=== PATIENT | female | born 1980 | race Caucasian/White ===

== ENCOUNTER 2016-12-25 07:21 | Emergency (ER) | payer OTHER ==
[~2016-12-25] VITALS: Ht 160 cm; Wt 81.6 kg
[2016-12-25] MEDS ORDERED: LOSA25TA4 PO (07:33)
--- NOTE | 2016-12-25 08:02 | PHYS DOC ---
Past Medical History Past Medical History: Hypertension Past Surgical History: Other Additional Past Surgical Histo: L leg sx Alcohol Use: Occasionally Drug Use: None Adult General Chief Complaint Chief Complaint: ABDOMINAL PAIN HPI HPI Patient is a 36 year old female who complains of lower abdominal pain which began after she woke up this morning about 1 hour prior to arrival. It started very suddenly and was "really bad", seemed to be a little worse with movement. Nothing made it better. At first thought maybe she needed to have a bowel movement but now she does not think that's it. The pain has let up somewhat but is still there. She's never had pain like this before. It is worsened with movement or walking. She had some nausea but no vomiting. Denies UTI symptoms. Denies . She had a Depakote shot about 2 months ago and she has not had a menstrual period since then. She has had a little spotting off and on. That was the first time she's had a Depakote shot. She was not using any control prior to that. She has not had any abdominal surgery. Past medical history hypertension, takes losartan, she has not taken it yet today. She gets her primary care at [facility]. Review of Systems Review of Systems Constitutional: Denies fever or chills [] Eyes: Denies change in visual acuity, redness, or eye pain [] HENT: Denies nasal congestion or sore throat [] Respiratory: Denies cough or shortness of breath [] Cardiovascular: Denies chest pain GI: As in history of present illness : Denies dysuria or hematuria [] Musculoskeletal: Denies back pain or joint pain [] Integument: Denies rash or skin lesions [] Neurologic: Denies headache, focal weakness or sensory changes [] Current Medications Current Medications Current Medications Medications (Trade) Dose Ordered Sig/Ronni Start Time Stop Time Status Last Admin Dose Admin Ketorolac Tromethamine (Toradol) 30 mg 1X ONCE 12/25/16 10:00 12/25/16 10:01 DC 12/25/16 09:35 30 MG Sodium Chloride (Iv Sodium Chloride 0.9% 1000ml Bag) 1,000 ml @ 1,000 mls/hr Q1H 12/25/16 08:15 12/25/16 09:14 DC 12/25/16 08:22 1,000 MLS/HR Allergies Allergies Allergies Coded Allergies Type Severity Reaction Last Updated Verified morphine Allergy Intermediate Nausea and Vomiting 12/25/16 Yes Physical Exam Physical Exam Constitutional: Well developed, well nourished, no acute distress, non-toxic appearance. No acute distress at this time. Alert, mentating normally. HENT: Normocephalic, atraumatic, bilateral external ears normal, nose normal. [ ] Eyes: conjunctiva normal, no discharge. [] Neck: Normal range of motion, no stridor. [] Cardiovascular:Heart rate regular rhythm, no murmur [] Lungs & Thorax: Bilateral breath sounds clear to auscultation [] Abdomen: Bowel sounds normal but quiet, soft, nondistended, no masses, no pulsatile masses. Mild to moderate tenderness in the low right lower quadrant and midline, slightly higher than suprapubic. Little to no left lower quadrant tenderness. No rebound or guarding. Pelvic exam: External genitalia normal. Vaginal vault normal. Cervix normal. Bimanual: No cervical motion tenderness. Uterus not enlarged or tender. Relatively significant tenderness to the right adnexa mostly from internal exam perspective, no enlargement, no masses, no fullness palpable in the right adnexa. Left adnexa nontender with no masses. Skin: Warm, dry, no erythema, no rash. [] Extremities: No tenderness, no cyanosis, no clubbing, ROM intact, no edema. [] Neurologic: Alert and oriented X 3, normal motor function, normal sensory function, no focal deficits noted. [] Current Patient Data Vital Signs Vital Signs Date Time Temp Pulse Resp B/P Pulse Ox O2 Delivery O2 Flow Rate FiO2 12/25/16 10:51 104 124/74 96 Room Air 12/25/16 07:27 98.2 18 98.2 Lab Values Laboratory Tests Test 12/25/16 06:59 12/25/16 07:30 12/25/16 08:17 POC Urine HCG, Qualitative Hcg negative (Negative) Urine Collection Type Void Urine Color Yellow Urine Clarity Clear Urine pH 6.0 Urine Specific Bradley >=1.030 Urine Protein Negativemg/dL (NEG-TRACE) Urine Glucose (UA) Negativemg/dL (NEG) Urine Ketones (Stick) Negativemg/dL (NEG) Urine Blood Small (NEG) Urine Nitrite Negative (NEG) Urine Bilirubin Negative (NEG) Urine Urobilinogen Dipstick 0.2mg/dL (0.2 mg/dL) Urine Leukocyte Esterase Moderate (NEG) Urine RBC 6-10/HPF (0-2) Urine WBC 5-10/HPF (0-4) Urine Squamous Epithelial Cells Many/LPF Urine Bacteria Many/HPF (0-FEW) Urine Mucus Marked/LPF White Blood Count 9.4x10^3/uL (4.0-11.0) Red Blood Count 4.04x10^6/uL (3.50-5.40) Hemoglobin 12.5g/dL (12.0-15.5) Hematocrit 37.6% (36.0-47.0) Mean Corpuscular Volume 93fL (79-100) Mean Corpuscular Hemoglobin 31pg (25-35) Mean Corpuscular Hemoglobin Concent 33g/dL (31-37) Red Cell Distribution Width 13.6% (11.5-14.5) Platelet Count 313x10^3/uL (140-400) Neutrophils (%) (Auto) 68% (31-73) Lymphocytes (%) (Auto) 24% (24-48) Monocytes (%) (Auto) 6% (0-9) Eosinophils (%) (Auto) 2% (0-3) Basophils (%) (Auto) 1% (0-3) Neutrophils # (Auto) 6.4x10^3uL (1.8-7.7) Lymphocytes # (Auto) 2.2x10^3/uL (1.0-4.8) Monocytes # (Auto) 0.5x10^3/uL (0.0-1.1) Eosinophils # (Auto) 0.1x10^3/uL (0.0-0.7) Basophils # (Auto) 0.1x10^3/uL (0.0-0.2) Sodium Level 140mmol/L (136-145) Potassium Level 3.4mmol/L (3.5-5.1) L Chloride Level 104mmol/L (98-107) Carbon Dioxide Level 27mmol/L (21-32) Anion Gap 9 (6-14) Blood Urea Nitrogen 15mg/dL (7-20) Creatinine 0.8mg/dL (0.6-1.0) Estimated GFR (Cockcroft-Gault) 80.3 BUN/Creatinine Ratio 19 (6-20) Glucose Level 114mg/dL (70-99) H Calcium Level 9.1mg/dL (8.5-10.1) Total Bilirubin 0.8mg/dL (0.2-1.0) Aspartate Amino Transferase (AST) 18U/L (15-37) Alanine Aminotransferase (ALT) 28U/L (14-59) Alkaline Phosphatase 48U/L (46-116) Total Protein 7.3g/dL (6.4-8.2) Albumin 3.6g/dL (3.4-5.0) Albumin/Globulin Ratio 1.0 (1.0-1.7) Lipase 144U/L (73-393) Laboratory Tests 12/25/16 08:17 Laboratory Tests 12/25/16 08:17 EKG EKG [] Radiology/Procedures Radiology/Procedures Pelvic ultrasound interpreted by the radiologist. No acute pathology noted. Good blood flow to both ovaries. [] Course & Med Decision Making Course & Med Decision Making Pertinent Labs and Imaging studies reviewed. (See chart for details) 36-year-old female with an acute onset of low right lower quadrant pain which seems to be localized to the right adnexa and possibly even right ovary on exam. test is negative. The patient does not have cervicitis, cervical motion tenderness, and I don't believe she has PID. Her pain was relatively severe and acute on onset but has let up since she presented to the ED. Ultrasound unremarkable for acute pathology. The patient may have had a ruptured cyst. I'm not finding any serious cause of her pain and it has let up quite a bit on its own. I feel that she is appropriate for discharge and can observe her at home. She is comfortable with that plan. [] Dragon Disclaimer Dragon Disclaimer This electronic medical record was generated, in whole or in part, using a voice recognition dictation system. Departure Departure Impression: Primary Impression: Right lower quadrant pain Disposition: HOME, SELF-CARE Condition: STABLE Referrals: UNKNOWN PCP NAME (PCP) Patient Instructions: Ovarian Cyst, [id number] Additional Instructions: Ibuprofen 800 mg every 8 hours for pain. Do not combine with Aleve, they are basically the same medication. Heating pad to pelvis area. If pain gets a lot worse, return for recheck. If not getting better by Tuesday or Tuesday, recheck with your doctor. Scripts Ibuprofen 800 Mg [id number] Mg PO Q8HRS PRN INFLAMMATION #20 TAB One every 8 hours for right-sided pelvis pain Prov:ANUSHA MORGAN MD 12/25/16 ANUSHA MORGAN MD Dec 25, 2016 08:02
[2016-12-25 08:03] LABS: BILIRUBIN,URINE NEGATIVE (NEG); GLUCOSE,URINE NEGATIVE (NEG); NITRITE,URINE NEGATIVE (NEG); PROTEIN,URINE NEGATIVE (NEG-TRACE); UROBILINOGEN,URINE 0.2 mg/dL (0.2 mg/dL)
[2016-12-25 08:15] LABS: BACTERIA,URINE MANY /HPF (0-FEW); SQUAMOUS EPITHELIAL CELL,UR MANY /LPF
[2016-12-25] MEDS ORDERED: IV NORMAL SALINE 1000ML BAG 1,000 ML IV SCH (08:15)
[2016-12-25 08:29] LABS: BASO # 0.1 x10^3/uL (0.0-0.2); BASO % 1 % (0-3); EOS % 2 % (0-3); HEMATOCRIT 37.6 % (36.0-47.0); HEMOGLOBIN 12.5 g/dL (12.0-15.5); LYMPH # 2.2 x10^3/uL (1.0-4.8); LYMPH % 24 % (24-48); MEAN CORPUSCULAR HEMOGLOBIN 31 pg (25-35); MEAN CORPUSCULAR HGB CONC 33 g/dL (31-37); MEAN CORPUSCULAR VOLUME 93 fL (79-100); MONO % 6 % (0-9); NEUT % 68 % (31-73); PLATELET COUNT 313 x10^3/uL (140-400); RED BLOOD COUNT 4.04 x10^6/uL (3.50-5.40); RED CELL DISTRIBUTION WIDTH 13.6 % (11.5-14.5); WHITE BLOOD COUNT 9.4 x10^3/uL (4.0-11.0)
[2016-12-25 08:39] LABS: CALCIUM 9.1 mg/dL (8.5-10.1); CREATININE 0.8 mg/dL (0.6-1.0); GFR 80.3; POTASSIUM 3.4 mmol/L (3.5-5.1)
[2016-12-25 08:45] LABS: ALBUMIN 3.6 g/dL (3.4-5.0); TOTAL BILIRUBIN 0.8 mg/dL (0.2-1.0); TOTAL PROTEIN 7.3 g/dL (6.4-8.2)
[2016-12-25] MEDS ORDERED: KETOROLAC TROMETHAMINE 30 MG/ML SYRINGE. IV ONE (10:00)
--- NOTE | 2016-12-25 10:13 | RAD ---
EXAM: Pelvic sonogram. HISTORY: Right adnexal pain. TECHNIQUE: Transvaginal sonographic imaging of the pelvis was performed. COMPARISON: None. FINDINGS: The uterus measures 6.8 x 4.4 x 3.5 cm. The individual stripe measures 3.1 mm. The right ovary measures 1.8 x 3.1 x 2.5 cm. The left ovary measures 2.5 x 2.0 x 1.8 cm. There is normal blood flow within both ovaries. There are several small ovarian follicles. There is a small amount of pelvic free fluid. IMPRESSION: 1. Small amount of nonspecific pelvic free fluid. 2. Otherwise, unremarkable pelvic sonogram.
[2016-12-25 10:51] VITALS: BP 124/74
[2016-12-25] MEDS ORDERED: IBUP-1060 PO (10:58)
[2016-12-26] MEDS ORDERED: CIPR500T94 PO (09:20)
[2016-12-26] MEDS ORDERED: ONDA4TAB7 PO (09:20)
[2016-12-26] MEDS ORDERED: TRAM-29 PO (09:20)
== END 2016-12-25 11:18 | disposition home or self-care (01) ==
LOC: ER 07:21
DX: R10.31 Right lower quadrant pain (principal); R11.0 Nausea; I10 Essential (primary) hypertension; Z88.5 Allergy status to narcotic agent; Z79.899 Other long term (current) drug therapy
CPT/HCPCS: 36415; 76830; 76856; 80053; 81001; 81025; 83690; 85027; 87086; 96361; 96374; 99285; J1885; J7030

== ENCOUNTER 2016-12-26 07:45 | Emergency (ER) | payer OTHER ==
[~2016-12-26] VITALS: Ht 160 cm; Wt 81.6 kg
[~2016-12-26 07:45] MED LIST: IBUP-1060 PO; LOSA25TA4 PO
--- NOTE | 2016-12-26 08:07 | PHYS DOC ---
Past Medical History Past Medical History: Hypertension Past Surgical History: Other Additional Past Surgical Histo: L leg sx Alcohol Use: Occasionally Drug Use: None Adult General Chief Complaint Chief Complaint: ABDOMINAL PAIN HPI HPI Patient is a 36 year old female with history of hypertension who presents today with moderate right lower quadrant abdominal pain that has been going on since yesterday. Patient states the pain is worse when she takes a deep breath. Patient states she was seen in the ED yesterday with the same pain. She states they did an ultrasound, pelvic exam, labs and told her she could have a ruptured ovarian cyst. Patient states the pain has gotten worse. Patient denies any fever, nausea, vomiting. She states the pain medicines they gave her which was ibuprofen is not touching her pain either. Review of Systems Review of Systems Constitutional: See history of present illness Eyes: Denies change in visual acuity, redness, or eye pain [] HENT: Denies nasal congestion or sore throat [] Respiratory: Denies cough or shortness of breath [] Cardiovascular: No additional information not addressed in HPI [] GI: Right lower quadrant abdominal pain : Denies dysuria or hematuria [] Musculoskeletal: Denies back pain or joint pain [] Integument: Denies rash or skin lesions [] Neurologic: Denies headache, focal weakness or sensory changes [] Endocrine: Denies polyuria or polydipsia [] Current Medications Current Medications Current Medications Medications (Trade) Dose Ordered Sig/Ronni Start Time Stop Time Status Last Admin Dose Admin Fentanyl Citrate (Fentanyl 2ml Vial) 50 mcg 1X ONCE 12/26/16 08:45 12/26/16 08:46 DC 12/26/16 08:19 50 MCG Iohexol (Omnipaque 300 Mg/ml) 75 ml 1X ONCE 12/26/16 08:30 12/26/16 08:31 DC 12/26/16 08:26 75 ML Ondansetron HCl (Zofran) 4 mg 1X ONCE 12/26/16 08:45 12/26/16 08:46 DC 12/26/16 08:18 4 MG Sodium Chloride (Iv Sodium Chloride 0.9% 1000ml Bag) 1,000 ml @ 1,000 mls/hr 1X ONCE 12/26/16 08:15 12/26/16 09:14 DC 12/26/16 08:18 1,000 MLS/HR Allergies Allergies Allergies Coded Allergies Type Severity Reaction Last Updated Verified morphine Allergy Intermediate Nausea and Vomiting 12/25/16 Yes Physical Exam Physical Exam Constitutional: Well developed, well nourished, no acute distress, non-toxic appearance. [] HENT: Normocephalic, atraumatic, bilateral external ears normal, oropharynx moist, no oral exudates, nose normal. [] Eyes: PERRLA, EOMI, conjunctiva normal, no discharge. [] Neck: Normal range of motion, no tenderness, supple, no stridor. [] Cardiovascular:Heart rate regular rhythm, no murmur [] Lungs & Thorax: Bilateral breath sounds clear to auscultation [] Abdomen: Rounded abdomen. Bowel sounds normal, soft, no right upper quadrant tenderness, negative Ontiveros sign, negative psoas sign, negative Rovsing, negative obuturator sign, no guarding. No guarding, no rebound pain or tenderness, no masses, no pulsatile masses. [] Skin: Warm, dry, no erythema, no rash. [] Back: No tenderness, no CVA tenderness. [] Extremities: No tenderness, no cyanosis, no clubbing, ROM intact, no edema. [] Neurologic: Alert and oriented X 3, normal motor function, normal sensory function, no focal deficits noted. [] Psychologic: Affect normal, judgement normal, mood normal. [] Current Patient Data Vital Signs Vital Signs Date Time Temp Pulse Resp B/P Pulse Ox O2 Delivery O2 Flow Rate FiO2 12/26/16 08:32 18 163/88 100 Room Air 12/26/16 07:45 98.4 115 98.4 Lab Values Laboratory Tests Test 12/26/16 08:13 White Blood Count 10.3x10^3/uL (4.0-11.0) Red Blood Count 3.82x10^6/uL (3.50-5.40) Hemoglobin 11.8g/dL (12.0-15.5) L Hematocrit 35.0% (36.0-47.0) L Mean Corpuscular Volume 92fL (79-100) Mean Corpuscular Hemoglobin 31pg (25-35) Mean Corpuscular Hemoglobin Concent 34g/dL (31-37) Red Cell Distribution Width 13.1% (11.5-14.5) Platelet Count 317x10^3/uL (140-400) Neutrophils (%) (Auto) 60% (31-73) Lymphocytes (%) (Auto) 29% (24-48) Monocytes (%) (Auto) 10% (0-9) H Eosinophils (%) (Auto) 2% (0-3) Basophils (%) (Auto) 1% (0-3) Neutrophils # (Auto) 6.2x10^3uL (1.8-7.7) Lymphocytes # (Auto) 2.9x10^3/uL (1.0-4.8) Monocytes # (Auto) 1.0x10^3/uL (0.0-1.1) Eosinophils # (Auto) 0.2x10^3/uL (0.0-0.7) Basophils # (Auto) 0.1x10^3/uL (0.0-0.2) Urine Collection Type Unknown Urine Color Subha Urine Clarity Cloudy Urine pH 7.0 Urine Specific Axis 1.020 Urine Protein 30mg/dL (NEG-TRACE) Urine Glucose (UA) Negativemg/dL (NEG) Urine Ketones (Stick) Negativemg/dL (NEG) Urine Blood Small (NEG) Urine Nitrite Positive (NEG) Urine Bilirubin Negative (NEG) Urine Urobilinogen Dipstick 1.0mg/dL (0.2 mg/dL) Urine Leukocyte Esterase Moderate (NEG) Urine RBC 6-10/HPF (0-2) Urine WBC 20-40/HPF (0-4) Urine Squamous Epithelial Cells Many/LPF Urine Bacteria Many/HPF (0-FEW) Urine Mucus Mod/LPF Sodium Level 138mmol/L (136-145) Potassium Level 3.6mmol/L (3.5-5.1) Chloride Level 104mmol/L (98-107) Carbon Dioxide Level 24mmol/L (21-32) Anion Gap 10 (6-14) Blood Urea Nitrogen 8mg/dL (7-20) Creatinine 0.7mg/dL (0.6-1.0) Estimated GFR (Cockcroft-Gault) 93.6 BUN/Creatinine Ratio 11 (6-20) Glucose Level 108mg/dL (70-99) H Calcium Level 9.0mg/dL (8.5-10.1) Total Bilirubin 2.1mg/dL (0.2-1.0) #H Aspartate Amino Transferase (AST) 58U/L (15-37) H Alanine Aminotransferase (ALT) 61U/L (14-59) H Alkaline Phosphatase 73U/L (46-116) Total Protein 7.4g/dL (6.4-8.2) Albumin 3.4g/dL (3.4-5.0) Albumin/Globulin Ratio 0.9 (1.0-1.7) L Lipase 107U/L (73-393) Laboratory Tests 12/26/16 08:13 Laboratory Tests 12/26/16 08:13 EKG EKG [] Radiology/Procedures Radiology/Procedures []PROCEDURE: ABD PELV W/ IV CONTRAST ONLY EXAM: Abdomen and pelvis CT with intravenous contrast. HISTORY: Right lower quadrant pain. TECHNIQUE: Computed tomographic images of the abdomen and pelvis were obtained following the administration of 75 cc Omnipaque 300 intravenous contrast. Multiplanar reformatting was performed. COMPARISON: None. FINDINGS: Evaluation of the lower thorax demonstrates posterior dependent and basilar atelectasis. There is no infiltrate or effusion. No hepatic lesion is seen. The gallbladder, pancreas, spleen, adrenal glands and kidneys are unremarkable. The appendix is normal in appearance. There is no evidence of bowel obstruction. There are a few prominent pericecal lymph nodes, likely reactive or physiologic. The uterus is unremarkable. There are multiple prominent ovarian follicles and there is a small amount of pelvic free fluid, within physiologic limits. No suspicious osseous lesion is seen. IMPRESSION: No acute abdominal or pelvic finding. Specifically, the appendix is normal in appearance. PQRS Compliance Statement: One or more of the following individualized dose reduction techniques were utilized for this examination: 1. Automated exposure control 2. Adjustment of the mA and/or kV according to patient size 3. Use of iterative reconstruction technique DICTATED and SIGNED BY: XAVIER WILSON MD DATE: 12/26/16 0857 CC: RAFAEL JUAN APRN; UNKNOWN PCP NAME; JAY POWELL MD ~ Course & Med Decision Making Course & Med Decision Making Pertinent Labs and Imaging studies reviewed. (See chart for details) Patient is in the ED with complaints of right lower quadrant abdominal pain that began yesterday. She was seen in the ED yesterday had labs done, pelvic ultrasound as well as pelvic exam which were negative. She returns today stating the pain is worse and the pain medicine she was given which is ibuprofen is not helping. Urine analysis is positive for UTI. CBC with no acute findings, CMP with a bilirubin of 2.1, AST of 58, AST of 61. CT of the abdomen and pelvic is negative for any acute findings. Patient has no right upper quadrant pain, nausea or quadrant pain. Discharged with Cipro and Ultram. Instructed to follow-up with her own PCP at [facility] in one week. Provided return precautions and discharged in stable condition. Dragon Disclaimer Dragon Disclaimer This electronic medical record was generated, in whole or in part, using a voice recognition dictation system. Departure Departure Impression: Primary Impression: Right lower quadrant pain Additional Impressions: UTI (urinary tract infection) Elevated liver enzymes Disposition: 01 HOME, SELF-CARE Condition: STABLE Referrals: UNKNOWN PCP NAME (PCP) Please follow up with your doctor in one week Patient Instructions: Urinary Tract Infection Additional Instructions: You were seen for right lower quadrant abdominal pain. Your urine shows you have urinary tract infection. Ensure you complete your antibiotics. Your liver enzymes are slightly elevated. This could be caused by many things including taking Tylenol or drinking alcohol. Take the prescribed pain medicines as needed. Follow-up with your doctor in 1 week and have them redraw your labs. Scripts Tramadol Hcl (Ultram)50 Mg Tablet1 Tab PO Q6HRS #30 TAB Prov:RAFAEL JUAN APRN 17 Ondansetron Hcl (Zofran)4 Mg Tablet1 Tab PO Q8HRS #20 TAB Prov:RAFAEL JUAN APRN //17 Ciprofloxacin Hcl (Cipro)500 Mg Tablet1 Tab PO BID #14 TAB Prov:RAFAEL JUAN APRN 17 Problem Qualifiers Additional Impressions: UTI (urinary tract infection) Urinary tract infection type: acute cystitis Hematuria presence: without hematuria Qualified Code: N30.00 - Acute cystitis without hematuria RAFAEL JUAN APRN Dec 26, 2016 08:07
[2016-12-26] MEDS ORDERED: IV NORMAL SALINE 1000ML BAG 1,000 ML IV ONE (08:15)
[2016-12-26] MEDS ORDERED: IOHEXOL 300 MG/ML 75 ML VIAL IV ONE (08:30)
[2016-12-26 08:32] VITALS: BP 163/88
[2016-12-26] MEDS ORDERED: FENTANYL PF 100 MCG/2 ML VIAL. IV ONE (08:45)
[2016-12-26] MEDS ORDERED: ONDANSETRON PF 4 MG/2 ML VIAL. IV ONE (08:45)
[2016-12-26 08:46] LABS: BASO # 0.1 x10^3/uL (0.0-0.2); BASO % 1 % (0-3); EOS % 2 % (0-3); HEMOGLOBIN 11.8 g/dL (12.0-15.5); LYMPH # 2.9 x10^3/uL (1.0-4.8); LYMPH % 29 % (24-48); MEAN CORPUSCULAR HEMOGLOBIN 31 pg (25-35); MEAN CORPUSCULAR HGB CONC 34 g/dL (31-37); MEAN CORPUSCULAR VOLUME 92 fL (79-100); MONO % 10 % (0-9); NEUT % 60 % (31-73); PLATELET COUNT 317 x10^3/uL (140-400); RED BLOOD COUNT 3.82 x10^6/uL (3.50-5.40); RED CELL DISTRIBUTION WIDTH 13.1 % (11.5-14.5); WHITE BLOOD COUNT 10.3 x10^3/uL (4.0-11.0)
[2016-12-26 08:47] LABS: BILIRUBIN,URINE NEGATIVE (NEG); GLUCOSE,URINE NEGATIVE (NEG); NITRITE,URINE POSITIVE (NEG); PROTEIN,URINE 30 mg/dL (NEG-TRACE)
[2016-12-26 08:55] LABS: BACTERIA,URINE MANY /HPF (0-FEW); SQUAMOUS EPITHELIAL CELL,UR MANY /LPF; WBC,URINE 20-40 /HPF (0-4)
[2016-12-26 08:59] LABS: CREATININE 0.7 mg/dL (0.6-1.0); GFR 93.6; POTASSIUM 3.6 mmol/L (3.5-5.1)
--- NOTE | 2016-12-26 09:02 | RAD ---
EXAM: Abdomen and pelvis CT with intravenous contrast. HISTORY: Right lower quadrant pain. TECHNIQUE: Computed tomographic images of the abdomen and pelvis were obtained following the administration of 75 cc Omnipaque 300 intravenous contrast. Multiplanar reformatting was performed. COMPARISON: None. FINDINGS: Evaluation of the lower thorax demonstrates posterior dependent and basilar atelectasis. There is no infiltrate or effusion. No hepatic lesion is seen. The gallbladder, pancreas, spleen, adrenal glands and kidneys are unremarkable. The appendix is normal in appearance. There is no evidence of bowel obstruction. There are a few prominent pericecal lymph nodes, likely reactive or physiologic. The uterus is unremarkable. There are multiple prominent ovarian follicles and there is a small amount of pelvic free fluid, within physiologic limits. No suspicious osseous lesion is seen. IMPRESSION: No acute abdominal or pelvic finding. Specifically, the appendix is normal in appearance. PQRS Compliance Statement: One or more of the following individualized dose reduction techniques were utilized for this examination: 1. Automated exposure control 2. Adjustment of the mA and/or kV according to patient size 3. Use of iterative reconstruction technique
[2016-12-26 09:04] LABS: ALBUMIN 3.4 g/dL (3.4-5.0); ALBUMIN/GLOBULIN RATIO 0.9 (1.0-1.7); TOTAL BILIRUBIN 2.1 mg/dL (0.2-1.0); TOTAL PROTEIN 7.4 g/dL (6.4-8.2)
[2016-12-26] MEDS ORDERED: CIPR500T94 PO (09:20)
[2016-12-26] MEDS ORDERED: TRAM-29 PO (09:20)
[2016-12-26] MEDS ORDERED: ONDA4TAB7 PO (09:20)
--- NOTE | 2016-12-28 15:27 | VNOTE ---
CALL BACK NOTE CALL BACK Microbiology 12/26/16 Urine Culture - Final, Complete 12/26/16 Urine Culture Result 1 (KORINA) - Final, Complete 12/26/16 Antimicrobic Susceptibility - Final, Complete Patient urine culture positive for E. Coli she was placed on Cipro at discharge. According to the culture sensitivity reports Cipro is susceptible to the infection no changes needed to antibiotics at this time. MAGGIE CAIN APRN Dec 28, 2016 15:27
== END 2016-12-26 09:26 | disposition home or self-care (01) ==
LOC: ER 07:45
DX: N30.00 Acute cystitis without hematuria (principal); R74.8 Abnormal levels of other serum enzymes; I10 Essential (primary) hypertension; Z88.5 Allergy status to narcotic agent
CPT/HCPCS: 36415; 74177; 80053; 81001; 83690; 85027; 87086; 87186; 96361; 96374; 96375; 99285; J2405; J3010; J7030; Q9967

== ENCOUNTER 2018-04-22 02:20 | Emergency (ER) | payer SELFPAY, OTHER ==
[2018-04-22 03:11] LABS: ADD MAN DIFF? NO
[2018-04-22 03:12] LABS: BASO # 0.1 x10^3/uL (0.0-0.2); BASO % 1 % (0-3); EOS # 0.2 x10^3/uL (0.0-0.7); EOS % 2 % (0-3); HEMOGLOBIN 14.3 g/dL (12.0-15.5); LYMPH % 33 % (24-48); MEAN CORPUSCULAR HEMOGLOBIN 34 pg (25-35); MEAN CORPUSCULAR HGB CONC 35 g/dL (31-37); MEAN CORPUSCULAR VOLUME 98 fL (79-100); MONO # 0.6 x10^3/uL (0.0-1.1); MONO % 7 % (0-9); NEUT # 5.4 x10^3uL (1.8-7.7); NEUT % 58 % (31-73); PLATELET COUNT 384 x10^3/uL (140-400); RED BLOOD COUNT 4.18 x10^6/uL (3.50-5.40); RED CELL DISTRIBUTION WIDTH 12.8 % (11.5-14.5); WHITE BLOOD COUNT 9.3 x10^3/uL (4.0-11.0)
[2018-04-22 03:16] LABS: URINE HCG POC HCG NEGATIVE (Negative)
[2018-04-22 03:20] LABS: ANION GAP 14 (6-14); BLOOD UREA NITROGEN 21 mg/dL (7-20); CALCIUM 9.5 mg/dL (8.5-10.1); CARBON DIOXIDE 22 mmol/L (21-32); CHLORIDE 100 mmol/L (98-107); CREATININE 1.3 mg/dL (0.6-1.0); GFR 45.6; GLUCOSE 101 mg/dL (70-99); POTASSIUM 3.6 mmol/L (3.5-5.1); SODIUM 136 mmol/L (136-145)
[2018-04-22] MEDS: IV NORMAL SALINE 1000ML BAG 1,000 ML IV ×2 (03:37→04:39)
[2018-04-22 06:06] LABS: D-DIMER < 0.27 ug/mlFEU (0.00-0.50)
== END 2018-04-22 06:21 | disposition home or self-care (01) ==
LOC: ER 02:20
DX: R55 Syncope and collapse (principal); R42 Dizziness and giddiness; R00.0 Tachycardia, unspecified; I10 Essential (primary) hypertension; Z98.890 Other specified postprocedural states; Z88.5 Allergy status to narcotic agent
CPT/HCPCS: 36415; 80048; 81025; 85025; 85379; 93005; 96360; 96361; 99285-25; J7030

== ENCOUNTER 2021-01-01 10:41 | Emergency (ER) | payer SELFPAY ==
[~2021-01-01] VITALS: Ht 160 cm; Wt 81.8 kg
[~2021-01-01 10:41] MED LIST changes: +CIPR500T94 PO; -LOSA25TA4 PO; +LOSA25TA54 PO; +ONDA4TAB7 PO; +TRAM-48 PO
[2021-01-01] MEDS ORDERED: hydrALAZINE 20 MG/ML VIAL. IVP ONE (11:15)
[2021-01-01] MEDS ORDERED: fentaNYL PF VIAL 100 MCG/2 ML VIAL IV PRN (11:15)
[2021-01-01 11:34] LABS: BASO # 0.1 x10^3/uL (0.0-0.2); BASO % 1 % (0-3); EOS # 0.1 x10^3/uL (0.0-0.7); EOS % 2 % (0-3); HEMATOCRIT 49.1 % (36.0-47.0); HEMOGLOBIN 16.8 g/dL (12.0-15.5); LYMPH # 2.6 x10^3/uL (1.0-4.8); LYMPH % 35 % (24-48); MEAN CORPUSCULAR HEMOGLOBIN 36 pg (25-35); MEAN CORPUSCULAR HGB CONC 34 g/dL (31-37); MEAN CORPUSCULAR VOLUME 104 fL (79-100); MONO # 0.5 x10^3/uL (0.0-1.1); MONO % 7 % (0-9); NEUT # 4.1 x10^3/uL (1.8-7.7); NEUT % 55 % (31-73); PLATELET COUNT 212 x10^3/uL (140-400); RED BLOOD COUNT 4.71 x10^6/uL (3.50-5.40); RED CELL DISTRIBUTION WIDTH 14.6 % (11.5-14.5); WHITE BLOOD COUNT 7.4 x10^3/uL (4.0-11.0)
--- NOTE | 2021-01-01 11:49 | RAD ---
Exam Date: 01/01/2021 11:12 AM XR CHEST 1V Indication: Reason: ELEVATED BLOOD PRESSURE / Spl. Instructions: / History: FINDINGS/ IMPRESSION: The cardiac silhouette and pulmonary vasculature are within normal limits. There is no focal consolidation, pleural effusion or pneumothorax. The visualized osseous structures are intact. Electronically signed by: Tu Cote MD (01/01/2021 11:47 AM) [id number]
--- NOTE | 2021-01-01 11:54 | RAD ---
Exam Date: 01/01/2021 11:[address] HEAD/BRAIN WO Indication: Reason: dizziness, elevated bp / Spl. Instructions: / History: TECHNIQUE: Head CT was performed without intravenous contrast. One or more of the following dose re duction techniques were utilized: *Automated exposure control (AEC) *Adjustment of mA and/or kV according to patient size *Use of iterative reconstruction technique *CT scan done according to ALARA, or ALARA/IMAGE GENTLY FINDINGS: The ventricles and sulci are normal for the patient's stated age. There is no evidence of acute int racranial hemorrhage, extra-axial collection, mass effect, midline shift, or acute territorial infarc t. No lesion of the skull base or the calvarium is seen. The visualized paranasal sinuses, mastoid ai r cells and orbits are normal in appearance. IMPRESSION: No evidence for acute intracranial abnormality. Electronically signed by: Tu Cote MD (01/01/2021 11:52 AM) [id number]
[2021-01-01 11:57] LABS: CALCIUM 8.5 mg/dL (8.5-10.1); CREATININE 0.8 mg/dL (0.6-1.0); GFR 78.7; POTASSIUM 4.4 mmol/L (3.5-5.1)
[2021-01-01 11:58] LABS: ALBUMIN 3.2 g/dL (3.4-5.0); ALBUMIN/GLOBULIN RATIO 0.8 (1.0-1.7); MAGNESIUM 1.8 mg/dL (1.8-2.4); TOTAL BILIRUBIN 1.5 mg/dL (0.2-1.0)
--- NOTE | 2021-01-01 11:58 | EKG ---
[facility] [address] [place] [address] Test Date: 2021-01-01 Test Time: 11:03:25 Pat Name: MORGAN CAGLE Department: Room: Gender: F Tube Lancer: : 1980 Requested By: RAFAEL JUAN Order Number: [id number] Reading MD: Measurements Intervals [place] Rate: 86 P: -5 MA: 164 QRS: 51 QRSD: 80 T: 22 QT: 370 QTc: 446 Interpretive Statements SINUS RHYTHM NORMAL ECG RI6.02 No previous ECG available for comparison
[2021-01-01 12:00] LABS: BARBITURATES NEG (NEG); BENZODIAZEPINES NEG (NEG); CANNABINOIDS NEG (NEG); COCAINE NEG (NEG); METHADONE NEG (NEG); OPIATES NEG (NEG); PHENCYCLIDINE NEG (NEG)
[2021-01-01 12:01] LABS: AMPHETAMINE/METHAMPHETAMINE NEG (NEG)
[2021-01-01 14:17] VITALS: BP 147/87
[2021-01-01] MEDS ORDERED: NICO1PAT21 TP (14:21)
--- NOTE | 2021-01-01 14:21 | PHYS DOC ---
Past Medical History Past Medical History: Hypertension, Other Additional Past Medical Histor: tachycardia Past Surgical History: Other Additional Past Surgical Histo: L leg sx Smoking Status: Current Every Day Smoker Additional Information: 09/27 ppd Alcohol Use: Heavy Additional Information: reports drinking 6-7 beers daily Drug Use: None General Adult EDM: Chief Complaint: HYPERTENSION HPI: HPI: Patient is a 40 year old female with history of hypertension who presents today complaining of high blood pressure and numbness to bilateral upper extremity that began this morning when she woke up. She states her blood pressure at home was 190/119, she took metoprolol. She is also on triamterene which she did not take. Patient denies any chest pain or shortness of breath. Denies any headache. Denies any nausea vomiting. Review of Systems: Review of Systems: Constitutional: Denies fever or chills. [] Eyes: Denies change in visual acuity. [] HENT: Denies nasal congestion or sore throat. [] Respiratory: Denies cough or shortness of breath. [] Cardiovascular: Reports elevated blood pressure. Denies chest pain or edema. [] GI: Denies abdominal pain, nausea, vomiting, bloody stools or diarrhea. [] : Denies dysuria. [] Musculoskeletal: Denies back pain or joint pain. [] Integument: Denies rash. [] Neurologic: Reports numbness to bilateral upper extremities. Denies headache, focal weakness or sensory changes. [] Psychiatric: Denies depression or anxiety. [] Heart Score: C/O Chest Pain: N/A Risk Factors: Risk Factors: DM, Current or recent (<one month) smoker, HTN, HLP, family history of CAD, obesity. Risk Scores: Score 0 - 3: 2.5% MACE over next 6 weeks - Discharge Home Score 4 - 6: 20.3% MACE over next 6 weeks - Admit for Clinical Observation Score 7 - 10: 72.7% MACE over next 6 weeks - Early Invasive Strategies Current Medications: Current Medications Medications (Trade) Dose Ordered Sig/Ronni Start Time Stop Time Status Last Admin Dose Admin Fentanyl Citrate (Fentanyl 2ml Vial) 50 mcg PRN Q15MIN PRN 01/01/21 11:15 01/02/21 11:14 Hydralazine HCl (Apresoline Inj) 10 mg 1X ONCE 01/01/21 11:15 01/01/21 11:16 DC Allergies: Allergies: Allergies Coded Allergies Type Severity Reaction Last Updated Verified morphine Allergy Intermediate Nausea and Vomiting 01/01/21 Yes Physical Exam: PE: Constitutional: Well developed, well nourished, no acute distress, non-toxic appearance. [] HENT: Normocephalic, atraumatic, bilateral external ears normal, oropharynx moist, no oral exudates, nose normal. [] Eyes: PERRLA, EOMI, conjunctiva normal, no discharge. [] Neck: Normal range of motion, no tenderness, supple, no stridor. [] Cardiovascular:Heart rate regular rhythm, no murmur [] Lungs & Thorax: Bilateral breath sounds clear to auscultation [] Abdomen: Bowel sounds normal, soft, no tenderness, no masses, no pulsatile masses. [] Skin: Warm, dry, no erythema, no rash. [] Back: No tenderness, no CVA tenderness. [] Extremities: No tenderness, no cyanosis, no clubbing, ROM intact, no edema. [] Neurologic: Alert and oriented X 3, normal motor function, normal sensory function, no focal deficits noted. Cranial nerves II through XII intact Psychologic: Appears anxious. Current Patient Data: Labs: Laboratory Tests Test 01/01/21 11:00 01/01/21 11:02 01/01/21 11:17 Urine Opiates Screen Neg (NEG) Urine Methadone Screen Neg (NEG) Urine Barbiturates Neg (NEG) Urine Phencyclidine Screen Neg (NEG) Urine Amphetamine/Methamphetamine Neg (NEG) Urine Benzodiazepines Screen Neg (NEG) Urine Cocaine Screen Neg (NEG) Urine Cannabinoids Screen Neg (NEG) Urine Ethyl Alcohol Neg (NEG) POC Urine HCG, Qualitative Hcg negative (Negative) White Blood Count 7.4 x10^3/uL (4.0-11.0) Red Blood Count 4.71 x10^6/uL (3.50-5.40) Hemoglobin 16.8 g/dL (12.0-15.5) H Hematocrit 49.1 % (36.0-47.0) H Mean Corpuscular Volume 104 fL (79-100) H Mean Corpuscular Hemoglobin 36 pg (25-35) H Mean Corpuscular Hemoglobin Concent 34 g/dL (31-37) Red Cell Distribution Width 14.6 % (11.5-14.5) H Platelet Count 212 x10^3/uL (140-400) Neutrophils (%) (Auto) 55 % (31-73) Lymphocytes (%) (Auto) 35 % (24-48) Monocytes (%) (Auto) 7 % (0-9) Eosinophils (%) (Auto) 2 % (0-3) Basophils (%) (Auto) 1 % (0-3) Neutrophils # (Auto) 4.1 x10^3/uL (1.8-7.7) Lymphocytes # (Auto) 2.6 x10^3/uL (1.0-4.8) Monocytes # (Auto) 0.5 x10^3/uL (0.0-1.1) Eosinophils # (Auto) 0.1 x10^3/uL (0.0-0.7) Basophils # (Auto) 0.1 x10^3/uL (0.0-0.2) Sodium Level 136 mmol/L (136-145) Potassium Level 4.4 mmol/L (3.5-5.1) Chloride Level 99 mmol/L (98-107) Carbon Dioxide Level 28 mmol/L (21-32) Anion Gap 9 (6-14) Blood Urea Nitrogen 6 mg/dL (7-20) L Creatinine 0.8 mg/dL (0.6-1.0) Estimated GFR (Cockcroft-Gault) 78.7 BUN/Creatinine Ratio 8 (6-20) Glucose Level 118 mg/dL (70-99) H Calcium Level 8.5 mg/dL (8.5-10.1) Magnesium Level 1.8 mg/dL (1.8-2.4) Total Bilirubin 1.5 mg/dL (0.2-1.0) H Aspartate Amino Transferase (AST) 195 U/L (15-37) H Alanine Aminotransferase (ALT) 122 U/L (14-59) H Alkaline Phosphatase 65 U/L (46-116) Troponin I Quantitative < 0.017 ng/mL (0.000-0.055) LU-Ygm-[id number]-Type Natriuretic Peptide 170 pg/mL (0-124) H Total Protein 7.0 g/dL (6.4-8.2) Albumin 3.2 g/dL (3.4-5.0) L Albumin/Globulin Ratio 0.8 (1.0-1.7) L Thyroid Stimulating Hormone (TSH) 3.553 uIU/mL (0.358-3.74) Laboratory Tests 01/01/21 11:17 Laboratory Tests 01/01/21 11:17 Vital Signs: Vital Signs Date Time Temp Pulse Resp B/P (MAP) Pulse Ox O2 Delivery O2 Flow Rate FiO2 01/01/21 13:17 82 20 144/96 (112) 96 Room Air 01/01/21 10:48 98.0 98.0 EKG: EK interpreted by Dr. Macedo sinus rhythm heart rate 86 no STEMI [] Radiology/Procedures: Radiology/Procedures: []PROCEDURE: CT HEAD WO CONTRAST Exam Date: 01/01/2021 11:[address] HEAD/BRAIN WO Indication: Reason: dizziness, elevated bp / Spl. Instructions: / History: TECHNIQUE: Head CT was performed without intravenous contrast. One or more of the following dose reduction techniques were utilized: *Automated exposure control (AEC) *Adjustment of mA and/or kV according to patient size *Use of iterative reconstruction technique *CT scan done according to ALARA, or ALARA/IMAGE GENTLY FINDINGS: The ventricles and sulci are normal for the patient's stated age. There is no evidence of acute intracranial hemorrhage, extra-axial collection, mass effect, midline shift, or acute territorial infarct. No lesion of the skull base or the calvarium is seen. The visualized paranasal sinuses, mastoid air cells and orbits are normal in appearance. IMPRESSION: No evidence for acute intracranial abnormality. Electronically signed by: Gin Cote MD (01/01/2021 11:52 AM) [id number] DICTATED and SIGNED BY: GIN COTE MD DATE: 01/01/21 [id number] PROCEDURE: PORTABLE CHEST 1V Exam Date: 01/01/2021 11:12 AM XR CHEST 1V Indication: Reason: ELEVATED BLOOD PRESSURE / Spl. Instructions: / History: FINDINGS/ IMPRESSION: The cardiac silhouette and pulmonary vasculature are within normal limits. There is no focal consolidation, pleural effusion or pneumothorax. The visualized osseous structures are intact. Electronically signed by: Gin Cote MD (01/01/2021 11:47 AM) [id number] DICTATED and SIGNED BY: GIN COTE MD DATE: 01/01/21 [id number] Course & Med Decision Making: Course & Med Decision Making Pertinent Labs and Imaging studies reviewed. (See chart for details) This is a 40-year-old female patient presenting to the ED today complaining of high blood pressure numbness to bilateral upper extremities that began this morning. Blood pressure at home was 190/119, she took metoprolol. Patient arrives in the ED with blood pressure of 204 and 26, heart rate 95, patient is very anxious. CBC with no acute findings, CMP with a slightly elevated AST 195 and ALT 122, [id number], denies any abdominal pain. EKG is negative, CT of the head is negative, chest x-ray is negative Patient's blood pressure came down on its own as low as 144/96 with heart rates in the 80s. She was discharged home. Follow-up with her PCP. Encouraged to take triamterene as soon as she gets home Patient is a smoker, we discussed smoking cessation including recommendation for nicotine patches. Rx was given. Spent 5 minutes on this topic. Dragon Disclaimer: Dragon Disclaimer: This electronic medical record was generated, in whole or in part, using a voice recognition dictation system. Departure Departure Impression: Primary Impression: Accelerated hypertension Additional Impressions: Arm paresthesia, right Arm paresthesia, left Smoking addiction Disposition: 01 DC HOME SELF CARE/HOMELESS Condition: STABLE Referrals: NO PCP (PCP) follow up with your doctor next week Patient Instructions: Hypertension, Paresthesia, [id number], Smoking Cessation Additional Instructions: You were evaluated in the emergency room for high blood pressure and numbness to bilateral upper extremities. Your CT of the head and chest x-ray are negative for any acute findings. The rest of your work-up is negative for any acute findings. Your blood pressure came down on its own. Please take triamterene as soon as you get home. Please consider smoking cessation, nicotine patches prescription provided Scripts Nicotine (NICODERM CQ 21mg) 1 Each Patch.td24 1 PATCH TP DAILY, #28 PATCH 1 Refill Prov: RAFAEL JUAN Rosario ACCOUNTING MANAGER CPA 01/01/21 RAFAEL JUAN ACCOUNTING MANAGER CPA Jan 01, 2021 14:21
== END 2021-01-01 14:52 | disposition home or self-care (01) ==
LOC: ER 10:41
DX: I10 Essential (primary) hypertension (principal); R20.0 Anesthesia of skin; F17.200 Nicotine dependence, unspecified, uncomplicated; F10.10 Alcohol abuse, uncomplicated; Z98.890 Other specified postprocedural states
CPT/HCPCS: 36415; 70450; 71045; 80053; 80307; 81025; 83735; 83880; 84443; 84484; 85025; 93005; 99285